=== PATIENT | female | born 1955 | race Caucasian/White ===

== ENCOUNTER → 2020-11-05 | Day surgery (SDC) | payer MEDICARE, OTHER ==
[~2020-11-05] MED LIST: AMLO-187 PO; CRESTOR10 MG PO; HYDR50TA9 PO; IPRATRPIUM/ALBUTEROL 0.5/2.5MG 3 ML NEBU. NEB PRN; IV RINGERS SOLUTION,LACTATED 1,000 ML IV SCH; LIDOCAINE 2% PF 5 ML VIAL. ONE; MELO15TA23 PO; MIDAZOLAM HCL PF 2 MG/2 ML VIAL. IV ONE; NITR100C62 PO; ONDA4TAB7 PO; ONDANSETRON PF 4 MG/2 ML VIAL. IV PRN; POTA20TA4 PO; PROPOFOL 10,000 MCG/ML (20ML) VIAL IV ONE
[2020-11-05 11:59] VITALS: BP 128/78
--- NOTE | 2020-11-16 18:09 | PATHOLOGY ---
[facility] Accession Number: [id number] . 01 Material submitted: . colon - ASCENDING COLON POLYP. Modifiers: ascending . 01 Clinical history: . SCREENING COLONOSCOPY COLONOSCOPY WITH POLYPECTOMY . 02 Diagnosis: Colon biopsy, ascending colon polyp: - Hyperplastic polyp, showing focal erosion, acute and chronic inflammation, and fibrosis of lamina propria. (JPM:pit; 11/16/2020) [facility] 11/16/2020 1346 Local . 02 Comment: Sections of the ascending colon polyp reveal a hyperplastic polyp showing focal erosion. In the area of erosion, there is lamina propria fibrosis and a mixed inflammatory cell infiltrate composed of neutrophils, small lymphocytes, plasma cells, eosinophils, and large cells, consistent with large lymphoid cells and/or histiocytes. A panel of immunoperoxidase stains is obtained on A1 and yields the following results: . AE1/AE3: Highlights colonic epithelial cells CD20: Highlights subpopulation of lymphoid cells within area of erosion CD3: Highlights subpopulation of lymphoid cells within area of erosion CD68: Highlights histocytes within area of erosion CD117: Highlights small numbers of mast cells within area of erosion and adjacent lamina propria S100: Large cells within area of erosion negative CD30: Rare cells within area of erosion positive . The morphologic and immunophenotypic findings are supportive of the diagnosis of an eroded and inflamed hyperplastic polyp. There are no adenomatous changes or evidence of malignancy. The case is also examined by Dr. Villanueva and Dr. Jacques, both of whom concur with the diagnosis. (JPM:pit; 11/16/2020) . Special stains performed: Immunoperoxidase stain for AE1/AE3, CD20, CD3, CD68, CD117, S100, CD30 . 02 Electronically signed: . Rajinder Wyman MD, Pathologist NPI- [id number] . 01 Gross description: . Received in formalin labeled "Meg Silva, ascending colon polyp" is a fragment of dukes-brown soft tissue measuring 0.6 x 0.5 x 0.4 cm. The surgical resection margin is inked black. The specimen is submitted entirely in A1. ([facility]; 11/08/2020) GZA/GZA 11/08/2020 1015 Local . 02 Pathologist provided ICD-10: K63.5, K52.9, K63.3 . 02 CPT . 764337, R77855, N80639 Specimen Comment: A courtesy copy of this report has been sent to [phone], [phone] Specimen Comment: [id number] Specimen Comment: Report sent to / DR HARDWICK Performed at: [facility] [address] [facility] [address], [place] [id number] MD Dale Antony MD Phone: [phone] Performed at: [facility] [address] [place], [place] [id number] MD Rajinder Wyman MD Phone: [phone]
== END | disposition home or self-care (01) ==
LOC: SURG 10:01
PROVIDERS: ATTEND Internal Medicine Gastroenterology
DX: Z12.11 Encounter for screening for malignant neoplasm of colon (principal); K57.30 Diverticulosis of large intestine without perforation or abscess without bleeding; K64.8 Other hemorrhoids; K63.5 Polyp of colon; K52.9 Noninfective gastroenteritis and colitis, unspecified; K63.3 Ulcer of intestine; I10 Essential (primary) hypertension; M19.90 Unspecified osteoarthritis, unspecified site; E78.00 Pure hypercholesterolemia, unspecified; I25.10 Atherosclerotic heart disease of native coronary artery without angina pectoris; Z79.899 Other long term (current) drug therapy; Z90.710 Acquired absence of both cervix and uterus; Z87.440 Personal history of urinary (tract) infections; Z79.891 Long term (current) use of opiate analgesic
CPT/HCPCS: 45381; 45385; 88305; 88341; 88342; J2001; J2704; J7120; 45380

== ENCOUNTER 2021-05-20 19:00 | Emergency (ER) | payer MEDICARE ==
[~2021-05-20] VITALS: Ht 170.2 cm; Wt 86.0 kg
[~2021-05-20 19:00] MED LIST changes: -IPRATRPIUM/ALBUTEROL 0.5/2.5MG 3 ML NEBU. NEB PRN; -IV RINGERS SOLUTION,LACTATED 1,000 ML IV SCH; -LIDOCAINE 2% PF 5 ML VIAL. ONE; -MIDAZOLAM HCL PF 2 MG/2 ML VIAL. IV ONE; -ONDANSETRON PF 4 MG/2 ML VIAL. IV PRN; +POTA-121 PO; -POTA20TA4 PO; -PROPOFOL 10,000 MCG/ML (20ML) VIAL IV ONE
--- NOTE | 2021-05-20 19:43 | PHYS DOC ---
Past History Past Medical History: Arthritis, Hypertension (JULITA GRAHAM APRN) Past Surgical History: Hysterectomy (JULITA GRAHAM APRN) Alcohol Use: None Drug Use: None (JULITA GRAHAM APRN) General Adult EDM: Chief Complaint: RIB PAIN HPI: HPI: Patient is a 65-year-old female who presents to the emergency department for bilateral upper abdominal/rib pain that has been intermittent for 1 month that she describes as a sharp pain and rates it 6 out of 10. She denies any injury. She reports a mild intermittent nonproductive cough. She denies shortness of breath, chest pain, fevers, nausea, vomiting, diarrhea. Patient states that she drinks occasionally does not a daily drinker. (JULITA GRAHAM APRN) Review of Systems: Review of Systems: Constitutional: See HPI Respiratory: See HPI Cardiovascular: See HPI GI: See HPI Musculoskeletal: See HPI (JULITA GRAHAM APRN) Allergies: Allergies: Allergies Coded Allergies Type Severity Reaction Last Updated Verified No Known Drug Allergies 11/01/20 No (JULITA GRAHAM APRN) Physical Exam: PE: Constitutional: Well developed, well nourished, no acute distress, non-toxic appearance. [] HENT: Normocephalic, atraumatic, bilateral external ears normal, oropharynx moist, no oral exudates, nose normal. [] Eyes: PERRL, EOMI, conjunctiva normal, no discharge. [] Neck: Normal range of motion, no stridor Cardiovascular:Heart rate tachycardic rhythm, no murmur [] Lungs & Thorax: Bilateral breath sounds clear to auscultation [] Abdomen: Bowel sounds normal, soft, no tenderness, no masses, no guarding or rigidity, pain with palpation to left upper and lower quadrant, no rebound tenderness, negative Rovsing sign, negative Hatch sign, no pulsatile masses. [] Skin: Warm, dry, no erythema, no rash. [] Back: Normal range of motion Extremities: No tenderness, no cyanosis, no clubbing, ROM intact, no edema. [] Neurologic: Alert and oriented X 3, normal motor function, normal sensory function, no focal deficits noted. [] Psychologic: Affect normal, judgement normal, mood normal. [] (JULITA GRAHAM APRN) Current Patient Data: Labs: Laboratory Tests Test 05/20/21 19:25 05/20/21 19:52 Urine Collection Type Clean catch Urine Color Yellow Urine Clarity Clear Urine pH 6.5 Urine Specific [place] 1.020 Urine Protein Trace Urine Glucose (UA) Neg mg/dL Urine Ketones (Stick) 15 mg/dL Urine Blood Trace Urine Nitrite Neg Urine Bilirubin Neg Urine Urobilinogen Dipstick 0.2 mg/dL Urine Leukocyte Esterase Neg Urine RBC 0 /HPF Urine WBC 0 /HPF Urine Squamous Epithelial Cells Many /LPF Urine Bacteria 0 /HPF White Blood Count 9.4 x10^3/uL Red Blood Count 4.84 x10^6/uL Hemoglobin 14.0 g/dL Hematocrit 40.2 % Mean Corpuscular Volume 83 fL Mean Corpuscular Hemoglobin 29 pg Mean Corpuscular Hemoglobin Concent 35 g/dL Red Cell Distribution Width 13.7 % Platelet Count 198 x10^3/uL Neutrophils (%) (Auto) 70 % Lymphocytes (%) (Auto) 17 % Monocytes (%) (Auto) 10 % Eosinophils (%) (Auto) 2 % Basophils (%) (Auto) 1 % Neutrophils # (Auto) 6.6 x10^3uL Lymphocytes # (Auto) 1.6 x10^3/uL Monocytes # (Auto) 0.9 x10^3/uL Eosinophils # (Auto) 0.2 x10^3/uL Basophils # (Auto) 0.1 x10^3/uL Sodium Level 137 mmol/L Potassium Level 3.0 mmol/L Chloride Level 98 mmol/L Carbon Dioxide Level 25 mmol/L Anion Gap 14 Blood Urea Nitrogen 14 mg/dL Creatinine 1.0 mg/dL Estimated GFR (Cockcroft-Gault) 55.3 BUN/Creatinine Ratio 14 Glucose Level 135 mg/dL Calcium Level 9.3 mg/dL Total Bilirubin 0.4 mg/dL Aspartate Amino Transf (AST/SGOT) 32 U/L Alanine Aminotransferase (ALT/SGPT) 29 U/L Alkaline Phosphatase 100 U/L Troponin I High Sensitivity 8 ng/L Total Protein 8.1 g/dL Albumin 3.9 g/dL Albumin/Globulin Ratio 0.9 Lipase 91 U/L Current Medications Medications (Trade) Dose Ordered Sig/Jimi Route PRN Reason Start Time Stop Time Status Last Admin Dose Admin Sodium Chloride 1,000 ml @ 1,000 mls/hr Q1H IV 05/20/21 19:45 05/20/21 20:44 DC 05/20/21 20:01 Fentanyl Citrate (Fentanyl 2ml Vial) 50 mcg 1X ONCE IVP 05/20/21 19:45 05/20/21 19:51 DC 05/20/21 20:04 Ondansetron HCl (Zofran) 4 mg 1X ONCE IVP 05/20/21 19:45 05/20/21 19:51 DC 05/20/21 20:03 Iohexol (Omnipaque 300 Mg/ml) 75 ml 1X ONCE IV 05/20/21 20:15 05/20/21 20:16 DC 05/20/21 20:53 Potassium Chloride (Klor-Con) 50 meq 1X ONCE PO 05/20/21 21:15 05/20/21 21:16 DC 05/20/21 21:27 (JULITA GRAHAM APRN) EKG: EKG: [] EKG performed by ER staff at 2035 shows sinus rhythm with rate of 85, QTC of 480, no STEMI read by Dr. Lynch at 2039. (JULITA GRAHAM APRN) Radiology/Procedures: Radiology/Procedures: []PROCEDURE: CT ABD PELV W/ IV CONTRST ONLY EXAMINATION: CT ABDOMEN+PELVIS W CLINICAL HISTORY: Left upper quadrant pain TECHNIQUE: CT of the abdomen and pelvis was performed using standard technique, scanning from just above the dome of the diaphragm to the symphysis pubis following administration of intravenous contrast. CT Dose Reduction Employed: One or more of the following individualized dose reduction techniques were utilized for this examination: 1. Automated exposure control 2. Adjustment of the mA and/or kV according to patient size 3. Use of iterative reconstruction technique. COMPARISON: 12/17/2015 FINDINGS: Visualized heart and lungs unremarkable. Several subcentimeter hypoenhancing foci in the liver, too small adequately ch aracterize but similar to prior study. Gallbladder, pancreas, spleen, adrenal glands, and kidneys unremarkable. Mildly filled urinary bladder. Hysterectomy. No bowel dilation or definite wall thickening. Colonic diverticulosis without evidence of acute diverticulitis. 2.1 cm fatty lesion in the third segment of the duodenum, similar to prior study. Small hiatal hernia. Arterial atherosclerotic calcification without aneurysm. Minimal L4-5 anterolisthesis, likely degenerative. Mild thoracolumbar degenerat magui disc disease. IMPRESSION: No evidence of acute abdominopelvic abnormality or significant interval change. Small hiatal hernia. Nonspecific 2.1 cm fatty lesion in the duodenum, similar to prior study. Electronically signed by: Miguel Andrews DO (05/20/2021 9:45 PM) [facility] DICTATED AND SIGNED BY: MIGUEL ANDREWS DO DATE: 05/20/212136 CC: NICOLASA HARDWICK MD; JULITA GRAHAM APRN ~MTH0 0 (JULITA GRAHAM APRN) Heart Score: C/O Chest Pain: No Risk Factors: Risk Factors: DM, Current or recent (<one month) smoker, HTN, HLP, family history of CAD, obesity. Risk Scores: Score 0 - 3: 2.5% MACE over next 6 weeks - Discharge Home Score 4 - 6: 20.3% MACE over next 6 weeks - Admit for Clinical Observation Score 7 - 10: 72.7% MACE over next 6 weeks - Early Invasive Strategies (JULITA GRAHAM APRN) Course & Med Decision Making: Course & Med Decision Making Pertinent Labs and Imaging studies reviewed. (See chart for details) [] Patient presents to the emergency department for bilateral upper abdominal/rib pain. Patient is tender in her left upper and lower quadrant. She is mildly tachycardic in the ER likely due to pain. Patient's only medical history is hypertension. Work-up in the ER consisted of blood work, urinalysis and CT imaging of abdomen and pelvis. Patient treated with IV fluids, nausea and pain medication. Patient CBC is unremarkable. She was noted to be mildly hypokalemic and this was replaced in the ER with supplementation. Urinalysis was unremarkable. Following treatment in the ER, her pain has resolved. Patient's vital signs have also improved and she is no longer tachycardic. CT reports show small fatty lesion on her duodenum which is similar to previous study. Patient is aware of this lesion. I discussed these findings with patient, patient will need to follow-up with her primary care provider, she will be discharged home with some pain medication. I discussed with patient all findings and diagnostic testing as well as the need to follow-up with PCP for further evaluation and treatment or return to the ER if any new or worsening symptoms. Strict return precautions were also discussed at length. Patient voiced understanding and agreement with the plan. Patient is hemodynamically stable at the time of disposition. (JULITA GRAHAM APRN) Dragon Disclaimer: Dragon Disclaimer: This electronic medical record was generated, in whole or in part, using a voice recognition dictation system. (JULITA GRAHAM APRN) Departure Departure: Impression: Primary Impression: Abdominal pain Qualified Codes: R10.12 - Left upper quadrant pain Disposition: HOME / SELF CARE / HOMELESS Condition: GOOD Referrals: NICOLASA HARDWICK MD (PCP) Patient Instructions: Abdominal Pain (Nonspecific) Additional Instructions: You were seen in the emergency department for left upper abdominal/rib pain. Your work-up in the ER was unremarkable. The imaging showed the lesion that we discussed and I printed off a copy of your CT reports. You are being discharged home with pain medication. Please take this as directed. This medication may cause sedation so do not take need to be alert, driving a vehicle or with alcohol. This medication also contains Tylenol should not take any additional Tylenol with this medication. You need to follow-up with your doctor on Sunday. Return to the emergency department if you develop worsening of your pain, intractable nausea or vomiting, high fevers refractory to treatment, blood in your stools or vomit chest pain, shortness of breath. Scripts Hydrocodone Bit/Acetaminophen (HYDROCODONE-APAP 5-325 ) 1 Each Tablet 1 TAB PO PRN Q6HRS PRN for PAIN for 2 Days, #8 TAB 0 Refills Prov: JULITA GRAHAM APRN 05/20/21 Attending Signature Attending Signature I have participated in the care of this patient and I have reviewed and agree with all pertinent clinical information above including history, exam, and recommendations. (TUNG LYNCH MD) JULITA GRAHAM APRN May 20, 2021 19:43 TUNG LYNCH MD May 23, 2021 17:53
[2021-05-20] MEDS ORDERED: ONDANSETRON PF 4 MG/2 ML VIAL. IVP ONE (19:45)
[2021-05-20] MEDS ORDERED: IV NORMAL SALINE 1,000ML 1,000 ML IV SCH (19:45)
[2021-05-20] MEDS ORDERED: IOHEXOL 300 MG/ML 75 ML VIAL. IV ONE (20:15)
[2021-05-20 20:25] LABS: BASO # 0.1 x10^3/uL (0.0-0.2); BASO % 1 % (0-3); EOS # 0.2 x10^3/uL (0.0-0.7); EOS % 2 % (0-3); HEMATOCRIT 40.2 % (36.0-47.0); LYMPH # 1.6 x10^3/uL (1.0-4.8); LYMPH % 17 % (24-48); MEAN CORPUSCULAR HEMOGLOBIN 29 pg (25-35); MEAN CORPUSCULAR HGB CONC 35 g/dL (31-37); MEAN CORPUSCULAR VOLUME 83 fL (79-100); MONO # 0.9 x10^3/uL (0.0-1.1); MONO % 10 % (0-9); NEUT # 6.6 x10^3uL (1.8-7.7); NEUT % 70 % (31-73); PLATELET COUNT 198 x10^3/uL (140-400); RED BLOOD COUNT 4.84 x10^6/uL (3.50-5.40); RED CELL DISTRIBUTION WIDTH 13.7 % (11.5-14.5); WHITE BLOOD COUNT 9.4 x10^3/uL (4.0-11.0)
[2021-05-20 20:39] LABS: CALCIUM 9.3 mg/dL (8.5-10.1); GFR 55.3
[2021-05-20 20:44] LABS: ALBUMIN 3.9 g/dL (3.4-5.0); ALBUMIN/GLOBULIN RATIO 0.9 (1.0-1.7); TOTAL BILIRUBIN 0.4 mg/dL (0.2-1.0); TOTAL PROTEIN 8.1 g/dL (6.4-8.2)
[2021-05-20 20:59] LABS: CLARITY,URINE CLEAR; COLOR,URINE YELLOW
[2021-05-20 21:00] LABS: BACTERIA,URINE 0 /HPF (0-FEW); BILIRUBIN,URINE NEG (NEG); GLUCOSE,URINE NEG (NEG); NITRITE,URINE NEG (NEG); RBC,URINE 0 /HPF (0-2); SQUAMOUS EPITHELIAL CELL,UR MANY /LPF; UROBILINOGEN,URINE 0.2 mg/dL (0.2 mg/dL); WBC,URINE 0 /HPF (0-4)
[2021-05-20] MEDS ORDERED: POTASSIUM CHLORIDE 10 MEQ TABLET.ER. PO ONE (21:15)
--- NOTE | 2021-05-20 21:48 | RAD ---
EXAMINATION: CT ABDOMEN+PELVIS W CLINICAL HISTORY: Left upper quadrant pain TECHNIQUE: CT of the abdomen and pelvis was performed using standard technique, scanning from just ab ove the dome of the diaphragm to the symphysis pubis following administration of intravenous contrast . CT Dose Reduction Employed: One or more of the following individualized dose reduction techniques wer e utilized for this examination: 1. Automated exposure control 2. Adjustment of the mA and/or kV ac cording to patient size 3. Use of iterative reconstruction technique. COMPARISON: 12/17/2015 FINDINGS: Visualized heart and lungs unremarkable. Several subcentimeter hypoenhancing foci in the liver, too small adequately characterize but similar to prior study. Gallbladder, pancreas, spleen, adrenal glands, and kidneys unremarkable. Mildly filled urinary bladder. Hysterectomy. No bowel dilation or definite wall thickening. Colonic diverticulosis without evidence of acute diver ticulitis. 2.1 cm fatty lesion in the third segment of the duodenum, similar to prior study. Small hi atal hernia. Arterial atherosclerotic calcification without aneurysm. Minimal L4-5 anterolisthesis, likely degenerative. Mild thoracolumbar degenerative disc disease. IMPRESSION: No evidence of acute abdominopelvic abnormality or significant interval change. Small hiatal hernia. Nonspecific 2.1 cm fatty lesion in the duodenum, similar to prior study. Electronically signed by: Miguel Casiano DO (05/20/2021 9:45 PM) [facility]
[2021-05-20] MEDS ORDERED: HYDR-2155 PO (21:57)
[2021-05-20 22:00] VITALS: BP 142/84
--- NOTE | 2021-05-21 02:01 | EKG ---
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
== END 2021-05-20 22:09 | disposition home or self-care (01) ==
LOC: ER 19:00
DX: R07.81 Pleurodynia (principal); R10.12 Left upper quadrant pain; I10 Essential (primary) hypertension; Z90.710 Acquired absence of both cervix and uterus
CPT/HCPCS: 36415; 74177; 80053; 81001; 83690; 84484; 85025; 93005; 96361; 96374; 96375; 99285; J2405; J3010; J7030; Q9967

== ENCOUNTER → 2021-05-25 | Outpatient (CLI) | payer MEDICARE ==
[2021-05-20 22:00] VITALS: BP 142/84
[~2021-05-25] MED LIST changes: +HYDR-2155 PO
--- NOTE | 2021-05-25 17:10 | RAD ---
XR CHEST 2V History: Reason: DYSPNEA, POSSIBLE ASTHMA / Spl. Instructions: / History: Comparison: None. Findings: No consolidation or pleural effusion. Normal heart size. No pneumothorax. Impression: 1. No acute cardiopulmonary process. Electronically signed by: Luca Fleming DO (05/25/2021 5:08 PM) [id number]
== END ==
LOC: RAD 13:35
PROVIDERS: ATTEND Family Medicine
DX: R06.00 Dyspnea, unspecified (principal)
CPT/HCPCS: 71046